=== PATIENT | male | born 1950 | race Hispanic/Latino ===

== ENCOUNTER → 2017-10-24 | Outpatient (CLI) | payer MEDICARE ==
[~2017-10-24] MED LIST: B/P MED; FLOMAX0.4 MG PO; IOPAMIDOL 370 MG/ML 200 ML INFUS..BTL INJ ONE; KETOROLAC TROME10 MG PO; SODIUM CHLORIDE 0.9% 50ML 50 ML ONE; TYLENOL # 31 EA PO; VASOTEC5 MG PO
[2017-10-24 09:14] LABS: BLOOD UREA NITROGEN 15 mg/dL (7-26); BUN/CREATININE RATIO 19 (6-25); CREATININE, SERUM 0.78 mg/dL (0.72-1.25); EST GLOMERULAR FILTRATION RATE > 60 ML/MIN (60-)
--- NOTE | 2017-10-24 10:51 | Diagnostic Imaging Report ---
PROCEDURE: CT ABDOMEN AND PELVIS WITH CONTRAST TECHNIQUE: The abdomen and pelvis were scanned utilizing a multidetector helical scanner from the diaphragm to the lesser trochanter after the IV administration of 100 cc of Isovue 370 and the oral administration of water. Coronal and sagittal multiplanar reformations were obtained. COMPARISON: CT abdomen and pelvis without contrast 01/09/2016. INDICATIONS: BENIGN LIPOMATOUS FINDINGS: LOWER THORAX: Unchanged large left-sided Bochdalek diaphragmatic hernia. HEPATOBILIARY: Subcentimeter hypoattenuating lesion in hepatic segment 6, too small to further characterize and unchanged relative to 01/09/2016, likely a small cyst. No additional focal hepatic lesion or intrahepatic biliary ductal dilatation. The gallbladder is collapsed but otherwise unremarkable. SPLEEN: No splenomegaly. PANCREAS: No focal masses or ductal dilatation. ADRENALS: No adrenal nodules. KIDNEYS/URETERS: Multiple low-attenuation lesion are noted throughout both kidneys, all of which have internal attenuation less than 20 Hounsfield units, and are stable to marginally increased in size compared to examination from 01/09/2016. The largest left-sided lesion measures 5.7 cm compared to 4.7 cm on the comparison examination. The largest right-sided lesion measures 5.7 cm in diameter compared to 5.3 cm on 01/09/2016. Duplicated right renal collecting system is again noted. Previously described calculus in the proximal ureter of the upper pole moiety has migrated retrograde into the collecting system as seen on series 2 image 25. Punctate nonobstructing left renal calculus best seen on series 301, image 70. No hydronephrosis. No renal, ureteral, or bladder calculi otherwise. PELVIC ORGANS/BLADDER: Coarse prostatic calcifications. Urinary bladder is incompletely distended but otherwise unremarkable. PERITONEUM / RETROPERITONEUM: No ascites or pneumoperitoneum. LYMPH NODES: No pelvic sidewall, retroperitoneal, or mesenteric lymphadenopathy. Portacaval lymph node measures 8-9 mm in short axis dimension, unchanged. VESSELS: There is atherosclerotic calcification of the abdominal aorta and major branch vessels without aneurysmal dilatation. Incidental note of a retroaortic left renal vein. GI TRACT: The large bowel shows no distention or wall thickening. Gas and fecal material are noted throughout. The appendix is normal. There is no small bowel dilatation to suggest obstruction. BONES AND SOFT TISSUES: Multilevel degenerative disc changes and facet arthropathy of the lower thoracic and lumbar spine. Bone island left femoral neck and left iliac wing, and right iliac wing. No focal soft tissue abnormalities. IMPRESSION: No acute intra-abdominal or pelvic CT abnormalities. Bilateral renal cysts, several of which are marginally increased in size relative to 01/09/2016. Partially duplicated right renal collecting system. Bilateral nonobstructing renal calculi. Prostatomegaly. Dictated by: Hai Mcdowell M.D. on 10/24/2017 at 10:53 Electronically approved by: Hai Mcdowell M.D. on 10/24/2017 at 10:53
== END ==
LOC: CT 08:19
PROVIDERS: ATTEND Internal Medicine
DX: D17.1 Benign lipomatous neoplasm of skin and subcutaneous tissue of trunk (principal)
CPT/HCPCS: 36415; 74177; 82565; 84520; Q9967

== ENCOUNTER → 2018-11-16 | Outpatient (CLI) | payer MEDICARE ==
[~2018-11-16] MED LIST changes: -IOPAMIDOL 370 MG/ML 200 ML INFUS..BTL INJ ONE; -SODIUM CHLORIDE 0.9% 50ML 50 ML ONE
--- NOTE | 2018-11-16 15:57 | Diagnostic Imaging Report ---
Chest, 2 views, 11/16/2018. History: Shortness of breath. Comparison: None available. Findings: The cardiomediastinal silhouette and pulmonary vasculature are within normal limits. The lungs are clear without evidence of consolidation or pleural effusion. Linear opacities are present at the left lung base. There are no acute osseous or soft tissue abnormalities. Impression: Left lower lobe atelectasis. Signed by: Connor Hackett on 11/16/2018 3:53 PM
== END ==
LOC: RAD 14:49
PROVIDERS: ATTEND Internal Medicine
DX: R06.02 Shortness of breath (principal); J41.0 Simple chronic bronchitis
CPT/HCPCS: 71046

== ENCOUNTER → 2018-11-28 | Outpatient (CLI) | payer MEDICARE ==
--- NOTE | 2018-11-29 07:28 | Diagnostic Imaging Report ---
EXAMINATION: CT scan of the chest without contrast. TECHNIQUE: Spiral CT images of the chest were performed from the lung apices to the level of the adrenal glands. No intravenous contrast was administered per interstitial lung disease protocol. Coronal and sagittal reformatted images were obtained. COMPARISON: Chest radiograph 11/16/2018 CLINICAL HISTORY:Left lung collapse DISCUSSION: ABSENCE OF INTRAVENOUS CONTRAST DECREASES SENSITIVITY FOR DETECTION OF FOCAL LESIONS AND VASCULAR PATHOLOGY. LINES/TUBES: None. LUNGS AND AIRWAYS: The lungs are well-inflated. Minimal bandlike atelectasis in the left lower lobe related to presence of a large fat-containing Bochdalek diaphragmatic hernia best seen on series 3 image 108. Minimal biapical pleural scar. No definite apical blebs or bullae. Juxtapleural nodular opacity in the right posterior costophrenic sulcus likely subsegmental atelectasis. The airways are normal, without endobronchial lesions. PLEURA: No pneumothorax or pleural effusions. HEART AND MEDIASTINUM: The thyroid gland is normal. No ectasia or aneurysmal dilatation of the thoracic aorta. Pulmonary outflow tract is of normal caliber. Atherosclerotic coronary artery calcifications. No pericardial effusion. LYMPH NODES: There is no mediastinal, hilar or axillary lymphadenopathy. ABDOMEN: Visualized portions of the liver, gallbladder, spleen, pancreas, and adrenal glands are unremarkable. Bilateral hypoattenuating renal lesions, right larger than left, have average internal attenuation less than 10 Hounsfield units, likely representing simple cysts. Partially visualized 7 mm right upper pole renal calculus. BONES AND SOFT TISSUES: No acute osseous abnormalities. Degenerative disc changes of the cervical and thoracic spine. IMPRESSION: Large fat-containing left Bochdalek hernia results in bandlike atelectasis in the left lower lobe, corresponding to the abnormality identified on comparison chest radiograph. Atherosclerotic vascular disease. Probable bilateral renal cysts. Right upper pole renal calculus. Signed by: Dr. Hai Mcdowell M.D. on 11/29/2018 7:25 AM
== END ==
LOC: CT 16:49
PROVIDERS: ATTEND Internal Medicine
DX: J98.11 Atelectasis (principal); N20.0 Calculus of kidney; M06.9 Rheumatoid arthritis, unspecified
CPT/HCPCS: 71250

== ENCOUNTER 2019-01-09 18:11 | Inpatient (IN) | payer MEDICARE ==
[~2019-01-09] VITALS: Ht 180.3 cm; Wt 99.8 kg
[2019-01-09] MEDS ORDERED: SODIUM CHLORIDE 0.9% 1000ML 1,000 ML IV STA (18:23)
[2019-01-09] MEDS ORDERED: MORPHINE SULFATE 2 MG/ML SYR 1ML IV STA (18:23)
--- OUTSIDE RECORDS SUMMARY | 2019-01-09 18:23 | XMS REPORT ---
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 Allergies, Adverse Reactions, Alerts This patient has no known allergies or adverse reactions. Medications This patient has no known medications. Results Test Description Test Time Test Comments Text Results Atomic Results Result Comments CT CHEST WO 2018-11-29 07:11:00 [place] [address] Patient Name: BAUTISTA RAMOS JR, V MR #: [id number] : 1950 Age/Sex: 68/M Req #: [id number] [facility] Physician: Ordered by: VINAY WILSON MD Report #: [id number] Location: CT Room/Bed: Procedure: [id number] CT/CT CHEST WO Exam Date: 11/28/18 Exam Time: 1720 REPORT STATUS: Signed EXAMINATION: CT scan of the chest without contrast. TECHNIQUE: Spiral CT images of the chest were performed from the lung apices to the level of the adrenal glands. No intravenous contrast was administered per interstitial lung disease protocol. Coronal and sagittal reformatted images were obtained. COMPARISON: Chest radiograph 11/16/2018 CLINICAL HISTORY:Left lung collapse DISCUSSION: ABSENCE OF INTRAVENOUS CONTRAST DECREASES SENSITIVITY FOR DETECTION OF FOCAL LESIONS AND VASCULAR PATHOLOGY. LINES/TUBES: None. LUNGS AND AIRWAYS: The lungs are well-inflated. Minimal bandlike atelectasis in the left lower lobe related to presence of a large fat-containing Bochdalek diaphragmatic hernia best seen on series 3 image 108. Minimal biapical pleural scar. No definite apical blebs or bullae. Juxtapleural nodular opacity in the right posterior costophrenic sulcus likely subsegmental atelectasis. The airways are normal, without endobronchial lesions. PLEURA: No pneumothorax or pleural effusions. HEART AND MEDIASTINUM: The thyroid gland is normal. No ectasia or aneurysmal dilatation of the thoracic aorta. Pulmonary outflow tract is of normal caliber. Atherosclerotic coronary artery calcifications. No pericardial effusion. LYMPH NODES: There is no mediastinal, hilar or axillary lymphadenopathy. ABDOMEN: Visualized portions of the liver, gallbladder, spleen, pancreas, and adrenal glands are unremarkable. Bilateral hypoattenuating renal lesions, right larger than left, have average internal attenuation less than 10 Hounsfield units, likely representing simple cysts. Partially visualized 7 mm right upper pole renal calculus. BONES AND SOFT TISSUES: No acute osseous abnormalities. Degenerative disc changes of the cervical and thoracic spine. IMPRESSION: Large fat-containing left Bochdalek hernia results in bandlike atelectasis in the left lower lobe, corresponding to the abnormality identified on comparison chest radiograph. Atherosclerotic vascular disease. Probable bilateral renal cysts. Right upper pole renal calculus. Signed by: Dr. Yair Farley M.D. on 11/29/2018 7:25 AM Dictated By: YAIR FARLEY MD 4 Transcribed By: VANESSA on 11/29/18724 COPY TO: VINAY WILSON MD CHEST 2 VIEWS 2018-11-16 15:53:00 [place] [address] Patient Name: BAUTISTA RAMOS JR, V MR #: [id number] : 1950 Age/Sex: 68/M Req #: [id number] Adm Physician: Ordered by: VINAY WILSON MD Report #: [id number] Location: [facility] Room/Bed: Procedure: [id number] DX/CHEST 2 VIEWS Exam Date: 11/16/18 Exam Time: 1500 REPORT STATUS: Signed Chest, 2 views, 11/16/2018. History: Shortness of breath. Comparison: None available. Findings: The cardiomediastinal silhouette and pulmonary vasculature are within normal limits. The lungs are clear without evidence of consolidation or pleural effusion. Linear opacities are present at the left lung base. There are no acute osseous or soft tissue abnormalities. Impression: Left lower lobe atelectasis. Signed b y: Connor Hackett on 11/16/2018 3:53 PM Dictated By: CONNOR HACKETT MD 52 Transcribed By: VANESSA on 11/16/181552 COPY TO: VINAY WILSON MD CT ABDOMEN/PELVIS W [place] [address] Patient Name: BAUTISTA RAMOS JR, V MR #: [id number] : 1950 Age/Sex: 67/M Acct #: [id number] Req #: [id number] Adm Physician: Ordered by: VINAY WILSON MD Report #: [id number] Location: CT Room/Bed: Procedure: [id number] CT/CT ABDOMEN/PELVIS W Exam Date: 10/24/17 Exam Time: 0900 REPORT STATUS: Signed PROCEDURE: CT ABDOMEN AND PELVIS WITH CONTRAST TECHNIQUE: The abdomen and pelvis were scanned utilizing a multidetector helical scanner from the diaphragm to the lesser trochanter after the IV administration of 100 cc of Isovue 370 and the oral administration of water. Coronal and sagittal multiplanar reformations were obtained. COMPARISON: CT abdomen and pelvis without contrast 01/09/2016. INDICATIONS: BENIGN LIPOMATOUS FINDINGS: LOWER THORAX: Unchanged large left-sided Bochdalek diaphragmatic hernia. HEPATOBILIARY: Subcentimeter hypoattenuating lesion in hepatic segment 6, too small to further characterize and unchanged relative to 01/09/2016, likely a small cyst. No additional focal hepatic lesion or intrahepatic biliary ductal dilatation. The gallbladder is collapsed but otherwise unremarkable. SPLEEN: No splenomegaly. PANCREAS: No focal masses or ductal dilatation. ADRENALS: No adrenal nodules. KIDNEYS/URETERS: Multiple low-attenuation lesion are noted throughout both kidneys, all of which have internal attenuation less than 20 Hounsfield units, and are stable to marginally increased in size compared to examination from 01/09/2016. The largest left-sided lesion measures 5.7 cm compared to 4.7 cm on the comparison examination. The largest right-sided lesion measures 5.7 cm in diameter compared to 5.3 cm on 01/09/2016. Duplicated right renal collecting system is again noted. Previously described calculus in the proximal ureter of the upper pole moiety has migrated retrograde into the collecting system as seen on series 2 image 25. Punctate nonobstructing left renal calculus best seen on series 301, image 70. No hydronephrosis. No renal, ureteral, or bladder calculi otherwise. PELVIC ORGANS/BLADDER: Coarse prostatic calcifications. Urinary bladder is incompletely distended but otherwise unremarkable. PERITONEUM / RETROPERITONEUM: No ascites or pneumoperitoneum. LYMPH NODES: No pelvic sidewall, retroperitoneal, or mesenteric lymphadenopathy. Portacaval lymph node measures 8-9 mm in short axis dimension, unchanged. VESSELS: There is atherosclerotic calcification of the abdominal aorta and major branch vessels without aneurysmal dilatation. Incidental note of a retroaortic left renal vein. GI TRACT: The large bowel shows no distention or wall thickening. Gas and fecal materia l are noted throughout. The appendix is normal. There is no small bowel dilatation to suggest obstruction. BONES AND SOFT TISSUES: Multilevel degenerative disc changes and facet arthropathy of the lower thoracic and lumbar spine. Bone island left femoral neck and left iliac wing, and right iliac wing. No focal soft tissue abnormalities. IMPRESSION: No acute intra-abdominal or pelvic CT abnormalities. Bilateral renal cysts, several of which are marginally increased in size relative to 01/09/2016. Partially duplicated right renal collecting system. Bilateral nonobstructing renal calculi. Prostatomegaly. Dictated by: Yair Farley M.D. on 10/24/2017 at 10:53 Electronically approved by: Yair Farley M.D. on 10/24/2017 at 10:53 Dictated By: YAIR FARLEY MD 1053 Transcribed By: VERO on 10/24/17 1053 COPY TO: VINAY WILSON MD
[2019-01-09 18:38] LABS: BASOPHILS % 0.2 % (0.0-1.0); EOSINOPHILS % 0.1 % (0.0-6.0); HEMATOCRIT 48.5 % (38.2-49.6); HEMOGLOBIN 16.8 g/dL (14.0-18.0); LYMPHOCYTES % 8.3 % (18.0-39.1); MEAN CORPUSCULAR HEMOGLOBIN 33.2 pg (28-32); MEAN CORPUSCULAR HGB CONC 34.6 g/dL (31-35); MEAN CORPUSCULAR VOLUME 95.8 fL (81-99); MONOCYTES # (AUTO) 0.9 (0.2-0.8); MONOCYTES % 6.9 % (4.4-11.3); NEUTROPHILS # (AUTO) 10.4 (2.1-6.9); NEUTROPHILS % 84.1 % (38.7-80.0); PLATELET COUNT 151 x10e3/uL (140-360); RED BLOOD COUNT 5.06 x10e6/uL (4.3-5.7); RED CELL DISTRIBUTION WIDTH 12.2 % (11.7-14.4)
[2019-01-09 18:40] LABS: BILIRUBIN,URINE NEGATIVE (NEGATIVE); CLARITY,URINE CLEAR (CLEAR); COLOR,URINE YELLOW (YELLOW); KETONES,URINE 1+ (NEGATIVE); LEUKOCYTE ESTERASE ,URINE NEGATIVE (NEGATIVE); NITRITE,URINE NEGATIVE (NEGATIVE); PROTEIN,URINE DIPSTICK TRACE (NEGATIVE); URINE UROBILINOGEN 0.2 mg/dL (0.2 - 1)
[2019-01-09] MEDS ORDERED: MORPHINE SULFATE INJ 4 MG/ML INJ 1ML IV ONE (18:45)
[2019-01-09 18:47] LABS: BACTERIA,URINE MODERATE /HPF; RBC,URINE 21-50 /HPF (0-5)
[2019-01-09 18:56] LABS: ALANINE AMINOTRANSFERASE 23 IU/L (0-55); ALBUMIN 4.2 g/dL (3.5-5.0); ALBUMIN/GLOBULIN RATIO 1.3 (0.8-2.0); ALKALINE PHOSPHATASE 97 IU/L (40-150); ANION GAP 13.5 mmol/L (8-16); BLOOD UREA NITROGEN 22 mg/dL (7-26); BUN/CREATININE RATIO 25 (6-25); CALCIUM 9.6 mg/dL (8.4-10.2); CARBON DIOXIDE 23 mmol/L (22-29); CHLORIDE 107 mmol/L (98-107); CREATININE, SERUM 0.88 mg/dL (0.72-1.25); EST GLOMERULAR FILTRATION RATE > 60 ML/MIN (60-); GLUCOSE 102 mg/dL (74-118); POTASSIUM 4.5 mmol/L (3.5-5.1); SODIUM 139 mmol/L (136-145)
--- NOTE | 2019-01-09 19:30 | Diagnostic Imaging Report ---
EXAM: CT Abdomen and Pelvis WITHOUT contrast INDICATION: Abdominal pain. Left flank pain. COMPARISON: 11/28/2018. 10/24/2017. 01/09/2016 TECHNIQUE: Abdomen and pelvis were scanned utilizing a multidetector helical scanner from the lung base to the pubic symphysis without administration of IV contrast. Absence of intravenous contrast decreases sensitivity for detection of focal lesions and vascular pathology. Coronal and sagittal reformations were obtained. Routine protocol was performed. IV CONTRAST: None ORAL CONTRAST: Water COMPLICATIONS: None RADIATION DOSE: Total DLP: 770 mGy*cm Estimated effective dose: (DLP x 0.015 x size factor) mSv CTDIvol has been reviewed. It is below the limits set by the Radiation Protocol Committee (RPC). Dose modulation, iterative reconstruction, and/or weight based adjustment of the mA/kV was utilized to reduce the radiation dose to as low as reasonably achievable. FINDINGS: LOWER THORAX: A 1.5 cm left posterior lateral diaphragmatic hernia. HEPATOBILIARY: No definite focal hepatic lesions. No biliary ductal dilatation. The gallbladder is unremarkable. SPLEEN: No splenomegaly. PANCREAS: No focal masses or ductal dilatation. ADRENALS: No discrete adrenal nodule. KIDNEYS/URETERS: Right: A 0.5 cm calculus in the right upper pole. No hydronephrosis. Multiple fluid densities, the largest at the posterior interpolar region Left: Multiple fluid densities, the largest 4.6 cm near the inferior pole. 0.7 cm partially obstructing stone in the distal left ureter. Moderate left hydronephrosis and hydroureter. Moderate left perinephric fat stranding. PELVIC ORGANS/BLADDER: The urinary bladder is partially decompressed. The prostate is mildly enlarged, 5.5 cm (mL) with coarse calcifications. PERITONEUM / RETROPERITONEUM: No free air or fluid. GI TRACT: On limited evaluation of the gastrointestinal tract, no dilation or wall thickening identified. The appendix is normal. LYMPH NODES: No pathologically enlarged lymph nodes. VESSELS: Diffuse scattered atherosclerotic vascular calcifications. BONES: No aggressive osseous lesion or acute fracture. SOFT TISSUES: Unremarkable. IMPRESSION: 1. 0.7 cm partially obstructing stone in the distal left ureter. Moderate left hydronephrosis and hydroureter. Moderate left perinephric fat stranding. 2. Nonobstructing right renal stone. 3. Bilateral renal cysts. 4. Enlarged prostate. Signed by: Dr. Angel David M.D. on 01/09/2019 7:26 PM
[2019-01-09] MEDS ORDERED: MORPHINE SULFATE 2 MG/ML SYR 1ML IV PRN (20:00)
[2019-01-09] MEDS ORDERED: ONDANSETRON HCL INJ 2MG/ML 2ML 2 MG/ML VIAL IV PRN (20:00)
--- NOTE | 2019-01-09 20:08 | NUR ---
clarified with dr rodriguez: patient to not have gastelum cath.
[2019-01-09] MEDS ORDERED: MORPHINE SULFATE INJ 4 MG/ML INJ 1ML IV PRN (20:15)
[2019-01-09 20:48] VITALS: BP 182/88
[2019-01-09 21:10] VITALS: BP 182/88
[2019-01-09] MEDS: CEFTRIAXONE SOD 1 GM/NS 50 ML 50 ML IV SCH (21:31)
[2019-01-09] MEDS: SODIUM CHLORIDE 0.9% 1000ML 1,000 ML IV SCH (21:31)
[2019-01-10] VITALS (8 sets, daily range): BP systolic 118–156; BP diastolic 65–89
[2019-01-10] MEDS: CEFTRIAXONE SOD 1 GM/NS 50 ML 50 ML IV SCH ×2 (08:42→20:47)
[2019-01-10] MEDS ORDERED: LEVOFLOXACIN 500MG/D5W 100ML 100 ML IV SCH (10:45)
[2019-01-10] MEDS: ACETAMINOPHEN/CODEINE 300MG - 30MG TAB PO SCH ×2 (11:12→18:00)
[2019-01-10] MEDS: ENALAPRIL MALEATE 5 MG TAB PO SCH (11:32)
[2019-01-10] MEDS: SODIUM CHLORIDE 0.9% 1000ML 1,000 ML IV SCH (11:32)
[2019-01-10] MEDS: TAMSULOSIN HCL 0.4 MG CAP PO SCH (11:32)
--- NOTE | 2019-01-10 15:23 | Diagnostic Imaging Report ---
Exam: KUB - 2 views Clinical History: Renal calculi Comparison: <None.> Findings: Nonobstructive bowel gas pattern. A 6 mm calcific density projecting over the bladder likely corresponds with the distal left ureteral calculus seen on the CT of 01/09/2019. No other abnormal calcification. The osseous structures appear unremarkable. Impression: Distal left ureteral calculus measuring 6 mm. No other radiographically apparent renal calculi. Signed by: Rhoda Bolton MD on 01/10/2019 3:19 PM
--- NOTE | 2019-01-10 17:37 | History and Physical ---
CHIEF COMPLAINT: He is a 68-year-old male patient of mine, presented with recurrent abdominal pain that was admitting chief complaint and left-sided flank pain. HISTORY OF PRESENT ILLNESS: Mr. Gerber is a 68-year-old male patient with previous history of hypertension, presented to the emergency room with a complaint of severe abdominal pain and left sided flank pain and patient also had a history of bloody urine. The patient was having the pain for 6 hours and with severe pain going to left flank area and it was radiating to the groin. REVIEW OF SYSTEMS: A detailed review of system examination was done. All 14 systems review examination done and mainly patient had abdominal pain, urinary symptoms and flank pain. PAST MEDICAL HISTORY: BPH, hyperlipidemia, hypertension. PAST SURGICAL HISTORY: Rotator cuff repair and right shoulder pain. MEDICATIONS: See from the list. ALLERGIES: NO KNOWN DRUG ALLERGIES. SOCIAL HISTORY: Denies smoking. Denies using alcohol. FAMILY HISTORY: Hypertension, hyperlipidemia. PHYSICAL EXAMINATION: GENERAL: He is an elderly male patient lying in the bed, not in any acute distress. VITAL SIGNS: Temperature 99, pulse rate 80, respiration rate 20, blood pressure 130/80. HEENT: Normocephalic, atraumatic. NECK: No JVD. No lymphadenopathy. LUNGS: Bilateral equal air entry. No rales, no rhonchi. HEART: S1, S2 regular. No murmur. No gallop. ABDOMEN: Soft. Bowel sounds present. NEUROLOGIC: No focal neurological deficit. ADMITTING IMPRESSION/DIAGNOSES: 1. Left renal ureteric stone. 2. Left hydronephrosis and hydroureter. 3. Urinary tract infection. 4. Hypertension. 5. Renal colic. PLAN: The patient is admitted with the above diagnosis. The patient will be given IV fluids, IV antibiotic and IV analgesics. Urology consultation has been done by Dr. Robbins. He is going to repeat KUB this afternoon if he thinks the stone is moving. If not, then the patient will need intervention. The patient is getting IV Rocephin. MD WILFRED Dean/MAUDEL /[id number]
--- NOTE | 2019-01-10 18:29 | NUR ---
Spoke to Dr. Robbins regarding KUB results- no new orders received.
--- NOTE | 2019-01-10 19:19 | NUR ---
PATIENT SITTING ON THE SIDE OF THE BED- IN STABLE CONDITION WITH NO S/S OF RESPIRATORY DISTRESS. NO PAIN VOICED. IV FLUIDS INFUSING. FAMILY MEMBERS PRESENT IN ROOM. CALL LIGHT IS WITHIN REACH, PATIENT INSTRUCTED TO CALL FOR ASSISTANCE NEEDED. BEDSIDE REPORT GIVEN TO ONCOMING NURSE.
[2019-01-11] VITALS (9 sets, daily range): BP systolic 148–187; BP diastolic 41–90
[2019-01-11] MEDS: ACETAMINOPHEN/CODEINE 300MG - 30MG TAB PO SCH ×4 (05:56→17:08)
[2019-01-11 06:07] LABS: BASOPHILS % 0.3 % (0.0-1.0); EOSINOPHILS # (AUTO) 0.2 (0.0-0.4); EOSINOPHILS % 2.8 % (0.0-6.0); HEMATOCRIT 41.7 % (38.2-49.6); LYMPHOCYTES % 34.5 % (18.0-39.1); MEAN CORPUSCULAR HEMOGLOBIN 32.9 pg (28-32); MEAN CORPUSCULAR HGB CONC 33.6 g/dL (31-35); MEAN CORPUSCULAR VOLUME 97.9 fL (81-99); MONOCYTES # (AUTO) 0.5 (0.2-0.8); MONOCYTES % 8.8 % (4.4-11.3); NEUTROPHILS # (AUTO) 3.1 (2.1-6.9); NEUTROPHILS % 53.4 % (38.7-80.0); PLATELET COUNT 133 x10e3/uL (140-360); RED BLOOD COUNT 4.26 x10e6/uL (4.3-5.7); RED CELL DISTRIBUTION WIDTH 12.4 % (11.7-14.4)
[2019-01-11 06:28] LABS: ALANINE AMINOTRANSFERASE 16 IU/L (0-55); ALBUMIN 3.3 g/dL (3.5-5.0); ALBUMIN/GLOBULIN RATIO 1.2 (0.8-2.0); ALKALINE PHOSPHATASE 74 IU/L (40-150); ANION GAP 10.6 mmol/L (8-16); BLOOD UREA NITROGEN 14 mg/dL (7-26); BUN/CREATININE RATIO 19 (6-25); CALCIUM 8.6 mg/dL (8.4-10.2); CARBON DIOXIDE 26 mmol/L (22-29); CHLORIDE 112 mmol/L (98-107); CREATININE, SERUM 0.74 mg/dL (0.72-1.25); EST GLOMERULAR FILTRATION RATE > 60 ML/MIN (60-); GLUCOSE 96 mg/dL (74-118); POTASSIUM 4.6 mmol/L (3.5-5.1); SODIUM 144 mmol/L (136-145)
[2019-01-11] MEDS: CEFTRIAXONE SOD 1 GM/NS 50 ML 50 ML IV SCH ×2 (08:16→20:00)
[2019-01-11] MEDS: TAMSULOSIN HCL 0.4 MG CAP PO SCH (08:16)
[2019-01-11] MEDS: ENALAPRIL MALEATE 5 MG TAB PO SCH (08:17)
--- NOTE | 2019-01-11 09:35 | NUR ---
PATIENT IN STABLE CONDITION WITH NO S/S OF RESPIRATORY DISTRESS. PATIENT DENIES PAIN. IV FLUIDS INFUSING. CALL LIGHT IS WITHIN REACH, PATIENT INSTRUCTED TO CALL FOR ASSISTANCE NEEDED.
--- NOTE | 2019-01-11 11:21 | Diagnostic Imaging Report ---
Exam: KUB - 2 views Clinical History: Renal calculi Comparison: CT abdomen pelvis of 01/09/2019, KUB of 01/10/2019 Findings: Nonobstructive bowel gas pattern. 9 mm calcific density projecting over the right kidney corresponds with upper pole calculus seen on CT of 01/09/2019. A 7 mm calcific density projecting over the bladder likely corresponds with the distal left ureteral calculus seen on the CT of 01/09/2019. No other abnormal calcification. The osseous structures appear unremarkable. Impression: Right upper pole 9 mm renal calculus. 7 mm calculus likely at the left distal ureter. Signed by: hRoda Bolton MD on 01/11/2019 11:17 AM
[2019-01-11] MEDS: SODIUM CHLORIDE 0.9% 1000ML 1,000 ML IV SCH ×2 (12:00→19:03)
--- NOTE | 2019-01-11 14:08 | Consultation ---
DATE OF CONSULTATION: 01/10/2019 Urologic Consultation Consultation was called by Dr. Caruso in the emergency room. CHIEF COMPLAINT/REASON FOR CONSULTATION: Kidney stones. HISTORY OF PRESENT ILLNESS: Mr. Gerber is a 68-year-old male with a history of acute onset of sharp left-sided flank pain, 10/10 that radiated to the anterior abdomen. Denied dysuria, reported gross hematuria. PAST MEDICAL HISTORY: Notable for BPH, hypercholesterolemia. MEDICATIONS: Please see MAR. ALLERGIES: NKDA. SOCIAL HISTORY: Nonsmoker. No drinking. FAMILY HISTORY: Denied urologic stones or malignancies. REVIEW OF SYSTEMS: Noncontributory other than problems mentioned above for 12 organ systems. PHYSICAL EXAMINATION: GENERAL: Elderly male, in no acute distress. VITAL SIGNS: Temperature 97.4, pulse 88, respirations 19, blood pressure 148/76. HEENT: Sclerae anicteric. NECK: Supple. BACK: Without costovertebral angle tenderness bilaterally. ABDOMEN: Soft. It is nontender. It is nondistended. There is no palpable mass. No palpable hernias. No palpable lymphadenopathy. : Normal male external genitalia. EXTREMITIES: Without edema. NEUROLOGIC: Moves all 4 extremities. PSYCHIATRIC: Alert and appropriate. SKIN: Intact, normal color. PERTINENT LABORATORY DATA: CT scan revealing a 7 mm left distal ureteral calculus with bilateral kidney stones, bilateral renal cysts. Hemoglobin 6, hematocrit 18, platelet count 51,000, white cell count of 12,000. Sodium 139, potassium 4.5, chloride 107, bicarb 23, BUN 22, creatinine 0.98, glucose 102. IMPRESSION: 1. Left ureteral calculus. 2. Bilateral renal calculi. 3. Bilateral renal cysts. 4. Benign prostatic hypertrophy. 5. Gross hematuria. 6. Left hydronephrosis. PLAN: We would employ a brief trial of passage. Should this fail, the patient will likely need stenting versus ureteroscopy. Defer management of the kidney stones surveillance of the cyst. Thank you for allowing me to participate in the care of your patient. I will be happy to follow along with you. MD TONI Santos/MODL /[id number]
--- NOTE | 2019-01-11 19:07 | NUR ---
PATIENT IN STABLE CONDITION WITH NO S/S OF RESPIRATORY DISTRESS. NO PAIN VOICED. IV FLUIDS INFUSING. PRESENT IN ROOM. CALL LIGHT IS WITHIN REACH, PATIENT INSTRUCTED TO CALL FOR ASSISTANCE NEEDED. BEDSIDE REPORT GIVEN TO ONCOMING NURSE.
--- NOTE | 2019-01-11 20:18 | NUR ---
RECEIVED PT SITTING ON THE SIDE OF THE BED NO ACUTE DISTRESS NOTED .CALL .BLANCHABLE REDNESS TO THE BILATERAL BUTTOCKS .WOUND CARE NOTED BY THE DAY SHIFT .CALL LIGHT WITH IN REACH .CONTINUE TO MONITOR
[2019-01-12] VITALS: BP 153/73
[2019-01-12 04:00] VITALS: BP 184/96
[2019-01-12] MEDS: ACETAMINOPHEN/CODEINE 300MG - 30MG TAB PO SCH ×3 (06:00→09:16)
[2019-01-12 06:23] LABS: BASOPHILS % 0.3 % (0.0-1.0); EOSINOPHILS # (AUTO) 0.1 (0.0-0.4); EOSINOPHILS % 1.3 % (0.0-6.0); HEMATOCRIT 45.3 % (38.2-49.6); HEMOGLOBIN 15.5 g/dL (14.0-18.0); LYMPHOCYTES # (AUTO) 2.3 (1.0-3.2); LYMPHOCYTES % 37.6 % (18.0-39.1); MEAN CORPUSCULAR HEMOGLOBIN 32.8 pg (28-32); MEAN CORPUSCULAR HGB CONC 34.2 g/dL (31-35); MONOCYTES # (AUTO) 0.4 (0.2-0.8); MONOCYTES % 6.3 % (4.4-11.3); NEUTROPHILS # (AUTO) 3.4 (2.1-6.9); NEUTROPHILS % 54.3 % (38.7-80.0); PLATELET COUNT 153 x10e3/uL (140-360); RED BLOOD COUNT 4.72 x10e6/uL (4.3-5.7); RED CELL DISTRIBUTION WIDTH 12.2 % (11.7-14.4)
[2019-01-12] MEDS ORDERED: IOPAMIDOL 610MG/1ML 300 MG/ML VIAL IV ONE (06:25)
--- NOTE | 2019-01-12 06:36 | NUR ---
PT IS NPO AFTER MIDNIGHT FOR CYSTOSCOPY .NO STONE FOUND IN THE URINE .FAMILY AT THE BEDSIDE .CALL LIGHT WITH IN REACH .CONTINUE TO MONITOR
[2019-01-12 06:42] LABS: ALANINE AMINOTRANSFERASE 22 IU/L (0-55); ALBUMIN 3.9 g/dL (3.5-5.0); ALBUMIN/GLOBULIN RATIO 1.2 (0.8-2.0); ALKALINE PHOSPHATASE 90 IU/L (40-150); ANION GAP 14.2 mmol/L (8-16); BLOOD UREA NITROGEN 14 mg/dL (7-26); BUN/CREATININE RATIO 19 (6-25); CALCIUM 9.3 mg/dL (8.4-10.2); CARBON DIOXIDE 23 mmol/L (22-29); CHLORIDE 111 mmol/L (98-107); CREATININE, SERUM 0.75 mg/dL (0.72-1.25); EST GLOMERULAR FILTRATION RATE > 60 ML/MIN (60-); GLUCOSE 99 mg/dL (74-118); POTASSIUM 4.2 mmol/L (3.5-5.1); SODIUM 144 mmol/L (136-145)
[2019-01-12] MEDS ORDERED: HYDRALAZINE HCL 20 MG/ML VIAL IV PRN (06:45)
--- NOTE | 2019-01-12 07:00 | NUR ---
RECEIVED REPORT FROM NURSE, PT LEFT THE UNIT AT 0658 FOR CYSTOSCOPY/LITHOTRIPSY/STENT PLACEMENTS. PT WAS ALERT WITH NO S/S OF DISTRESS. PT TRANSPORTED VIA STRETCHER.
[2019-01-12] MEDS: SODIUM CHLORIDE 0.9% 1000ML 1,000 ML IV SCH (07:16)
--- NOTE | 2019-01-12 07:21 | NUR ---
BP WAS HIGH AND NOTIFIED DR WILSON .DR WILSON GIVEN THE ORDER TO GIVE HYDRALAZINE 2.5 MG .GIVEN HYDRALAZINE BEFORE E GOING TO THE SURGERY EPOERT GIVEN TO THE ONCOMING NURSE
--- NOTE | 2019-01-12 08:30 | NUR ---
RECEIVED REPORT FROM CHRISTEN IN PACU, PT IS S/P LEFT CYSTO/RETROGRADE/LASER/STENT PLACEMENT. PT IS AWAKE AND ORIENTED, NO S/S OF DISTRESS. LAST VITALS: 132/77 HR 69 RR 16 O2 SAT 98% ON ROOM AIR. NO N/V AND NO COMPLAINTS OF PAIN
[2019-01-12 08:45] VITALS: BP 168/83
[2019-01-12] MEDS: CEFTRIAXONE SOD 1 GM/NS 50 ML 50 ML IV SCH (09:15)
[2019-01-12] MEDS: TAMSULOSIN HCL 0.4 MG CAP PO SCH (09:15)
[2019-01-12] MEDS: ENALAPRIL MALEATE 5 MG TAB PO SCH (09:16)
[2019-01-12 09:30] VITALS: BP 168/83
[2019-01-12 11:44] VITALS: BP 153/80
[2019-01-12] MEDS ORDERED: KETAMINE HCL INJ 50 MG/ML 10 ML VIAL ONE (19:23)
[2019-01-12] MEDS ORDERED: MIDAZOLAM HCL 2 MG/2 ML VIAL ONE (19:23)
[2019-01-12] MEDS ORDERED: FENTANYL CITRATE/PF 100MCG/2 ML INJ ONE (19:23)
[2019-01-12] MEDS ORDERED: PROPOFOL IV EMULSION 10 MG/ML 20 ML VIAL ONE (19:41)
[2019-01-12] MEDS ORDERED: LIDOCAINE HCL 2% LOCAL INJ 5 ML SDV VIAL INJ ONE (19:41)
[2019-01-12] MEDS ORDERED: DEXAMETHASONE SOD PHOS INJ 4 MG/ML VIAL ONE (19:41)
[2019-01-12] MEDS ORDERED: ONDANSETRON HCL INJ 2MG/ML 2ML 2 MG/ML VIAL ONE (19:41)
[2019-01-12] MEDS ORDERED: CEFTRIAXONE SOD 1 GM VIAL ONE (19:41)
[2019-01-12] MEDS ORDERED: DESFLURANE 240 ML BTL INH ONE (19:41)
--- NOTE | 2019-01-13 21:03 | Operative Report ---
DATE OF PROCEDURE: 01/12/2019 SURGEON: Lucas Robbins MD PREOPERATIVE DIAGNOSES: 1. Hematuria. 2. Left ureteral calculus. 3. Left hydronephrosis. POSTOPERATIVE DIAGNOSES: 1. Hematuria. 2. Left ureteral calculus. 3. Left hydronephrosis. PROCEDURES: 1. Cystourethroscopy with right ureteral catheterization and right retrograde pyelogram (separate procedure for the diagnosis of microscopic hematuria). 2. Left-sided ureteroscopy with laser lithotripsy (entirely separate procedure for diagnosis of left ureteral calculus). 3. Cystourethroscopy with insertion of left indwelling ureteral stent (entirely separate procedure for diagnosis of left hydronephrosis). 4. Supervision of fluoroscopy for ureteroscopy and stent insertion portions. 5. Interpretation of retrograde pyelography. ANESTHESIA: General. ESTIMATED BLOOD LOSS: Minimal. COMPLICATIONS: None. INDICATIONS FOR PROCEDURE: Mr. Gerber is a 68-year-old male with a history of a large ureteral calculus, who was failed a trial of passage. He and I had a long discussion regarding alternatives, risks, and benefits including doing nothing, ureteroscopy, stent placement, percutaneous surgery, shock lithotripsy, and open surgery. He voiced understanding of the options, alternatives, risks, and benefits and elected to proceed. PROCEDURE IN DETAIL: After informed consent was obtained, the patient was taken to the operative suite, placed supine on the operating table, underwent general anesthesia by Anesthesia Service. He was placed in the dorsal lithotomy position and sterilely prepped and draped in standard fashion for cystoscopy. A 21-Tajik cystoscope was inserted per urethra. Normal urethra was noted. Panendoscopy of bladder revealed no tumors, no stones. The left ureteral orifice was catheterized. Retrograde pyelogram was performed revealing distal 7 mm calculus, proximal hydronephrosis. A guidewire was inserted. Attention was turned to the right side, where retrograde pyelogram revealed a stone in the upper mid pole moiety. The ureteroscope was advanced to the left ureter after dilation. Utilizing a 365 micron laser fiber, the stone was obliterated. The ureteral stent was then deployed with coil in the renal pelvis and the coil in the bladder. The bladder was then drained. The patient was awakened from anesthesia and transferred to the recovery room in excellent condition. Supervision of fluoroscopy and interpretation of retrograde pyelography: I was present for the entire procedure and supervised fluoroscopy. There was no radiologist present. Attention was turned to the left ureteral orifice, which was catheterized. Retrograde pyelogram was performed. On the left side, there was a 7 mm distal ureteral calculus and proximal hydronephrosis and on the right side, there was duplicated collecting system with a stone seen in the upper pole moiety. Postoperative views on the left side revealed stent in adequate position. MD TONI Santos/MODL /[id number]
[2019-01-18] MEDS ORDERED: MELOXICAM7.5 MG PO (09:18)
== END 2019-01-12 15:25 | disposition home or self-care (01) | DRG 661 ==
LOC: ER 18:11 → ERHOLD 20:13 → MED/SURG3 20:48
PROVIDERS: ADMIT Internal Medicine; ATTEND Internal Medicine
PROC: 0T768ZZ Dilation of Right Ureter, Via Natural or Artificial Opening Endoscopic (ICD-10-PCS; 2019-01-12)
PROC: BT141ZZ Fluoroscopy of Kidneys, Ureters and Bladder using Low Osmolar Contrast (ICD-10-PCS; 2019-01-12)
PROC: 0T778DZ Dilation of Left Ureter with Intraluminal Device, Via Natural or Artificial Opening Endoscopic (ICD-10-PCS; principal; 2019-01-12 07:00)
PROC: 0TC78ZZ Extirpation of Matter from Left Ureter, Via Natural or Artificial Opening Endoscopic (ICD-10-PCS; 2019-01-12 07:00)
DX: N13.6 Pyonephrosis (principal); N39.0 Urinary tract infection, site not specified; R31.9 Hematuria, unspecified; N28.1 Cyst of kidney, acquired; R31.0 Gross hematuria; N40.0 Benign prostatic hyperplasia without lower urinary tract symptoms; I10 Essential (primary) hypertension
CPT/HCPCS: 36415; 74018; 74176; 74420; 80053; 81001; 82948; 85025; 87086; 99284; C1758; C1788; C2617; J0360; J0696; J1100; J2001; J2250; J2270; J2405; J3010; J7030

== ENCOUNTER → 2019-01-19 | Day surgery (SDC) | payer MEDICARE ==
--- NOTE | 2019-01-18 11:01 | Diagnostic Imaging Report ---
Abdomen, 1 view. History: Renal stone. Findings: 9 mm calcific density projected over the upper pole of the right kidney is unchanged. A new left internal ureteral double-J stent is present. The calcification previously seen in the left pelvis is not clearly identified on today's study. Air is scattered throughout nondilated small and large bowel. There are no masses. The osseous structures are intact. IMPRESSION: Interval placement of left internal ureteral double-J stent. Signed by: Connor Hackett on 01/18/2019 10:58 AM
[~2019-01-19] MED LIST changes: +CEFTRIAXONE SOD 1 GM/NS 50 ML 50 ML IV ONE; +DEXAMETHASONE SOD PHOS INJ 4 MG/ML VIAL ONE; +EPHEDRINE SULFATE INJ 50 MG/10 ML SYR ONE; +FENTANYL CITRATE/PF 100MCG/2 ML INJ ONE; +IOPAMIDOL 610MG/1ML 300 MG/ML VIAL IV ONE; +LIDOCAINE HCL 2% LOCAL INJ 5 ML SDV VIAL INJ ONE; +MELOXICAM7.5 MG PO; +MIDAZOLAM HCL 2 MG/2 ML VIAL ONE; +ONDANSETRON HCL INJ 2MG/ML 2ML 2 MG/ML VIAL ONE; +PROPOFOL IV EMULSION 10 MG/ML 20 ML VIAL ONE; +SEVOFLURANE INHAL SOLN 250 ML PEN BTL ONE
[2019-01-19 09:40] VITALS: BP 148/85
--- NOTE | 2019-01-22 00:52 | Operative Report ---
DATE OF PROCEDURE: 01/19/2019 SURGEON: Lucas Robbins MD PREOPERATIVE DIAGNOSIS: Left kidney stone. POSTOPERATIVE DIAGNOSIS: Left kidney stone. PROCEDURES: 1. Staged shock wave lithotripsy, left side. 2. Supervision of fluoroscopy. ANESTHESIA: General. ESTIMATED BLOOD LOSS: Minimal. COMPLICATIONS: None. INDICATIONS FOR PROCEDURE: Mr. Gerber is a 68-year-old male with a previous history of left ureteral calculus fragment bone of the kidney as well as small kidney stone. He also has a large right kidney stone. The patient now presents for a staged left-sided shock wave lithotripsy, possible stent removal. He voiced understanding of the options, alternatives, the risks, and benefits and he elected to proceed. PROCEDURE IN DETAIL: After informed consent was obtained, a time-out was taken and then operative sites were identified. The patient was taken to the operative suite, placed supine on the operating table. He underwent general anesthesia by the Anesthesia Service. A time-out was taken. The side was confirmed with a radha. Attention was turned to the left kidney. Stone was localized in the X, Y and Z planes. Treatment report, the patient tolerated the procedure well and was transported to recovery room in excellent condition. Supervision of fluoroscopy: I was present for the entire procedure and supervised fluoroscopy. There was no radiologist present at the time of this procedure. The patient will return in approximately 2 weeks for left stent removal and right shock wave lithotripsy. Lucas Robbins MD ES/MODL /[id number]
== END | disposition home or self-care (01) ==
LOC: OR 05:52
PROVIDERS: ATTEND Urology
DX: N13.2 Hydronephrosis with renal and ureteral calculous obstruction (principal); Z01.810 Encounter for preprocedural cardiovascular examination
CPT/HCPCS: 50590; 74018; 93005; J0696; J1100; J2001; J2250; J2405; J2704; J3010

== ENCOUNTER → 2019-01-24 | Day surgery (SDC) | payer MEDICARE ==
[~2019-01-24] MED LIST changes: -CEFTRIAXONE SOD 1 GM/NS 50 ML 50 ML IV ONE; +GENTAMICIN 80MG/NS 100 ML 100 ML IV ONE; +PHENYLEPHRINE HCL 1% 10 MG/ML VIAL ONE
[2019-01-24 14:42] VITALS: BP 138/94
--- NOTE | 2019-01-25 15:30 | Operative Report ---
DATE OF PROCEDURE: 01/24/2019 SURGEON: Lucas Robbins MD PREOPERATIVE DIAGNOSES: 1. Indwelling left ureteral stent. 2. Right renal calculi. POSTOPERATIVE DIAGNOSES: 1. Indwelling left ureteral stent. 2. Right renal calculi. PROCEDURES: 1. Staged right-sided shock wave lithotripsy. 2. Cystourethroscopy with staged removal of left indwelling stent. 3. Supervision of fluoroscopy. ANESTHESIA: General. ESTIMATED BLOOD LOSS: Minimal. COMPLICATIONS: None. INDICATIONS: Mr. Gerber is a very pleasant 68-year-old male, now presents for hopefully his final procedure to rid him of his bilateral obstructing stones. He and I had a long discussion about alternatives, risks, and benefits of doing nothing, shock wave lithotripsy, ureteroscopy, percutaneous surgery, and open surgery. He voiced understanding of the options, alternatives, risks, and benefits and he elected to proceed with staged lithotripsy and stent removal. PROCEDURE IN DETAIL: After informed consent was obtained, the patient was taken to the operative suite, placed supine on the operating table. He underwent general anesthesia by Anesthesia Service. He was placed in the dorsal lithotomy position, sterilely prepped and draped in standard fashion for cystoscopy. A 21-Estonian cystoscope was inserted per urethra. Normal urethra was noted. Panendoscopy of the bladder revealed no tumors and no stones. The stent was seen extruding from left ureteral orifice, it was grasped and removed intact. The patient was then placed back in the supine position. The stone was localized in the right kidney in the X, Y, and Z planes. Treatment was performed per the treatment report. The patient tolerated the procedure well and transported to the recovery room in excellent condition. Supervision of fluoroscopy: I was present for the entire procedure and supervised fluoroscopy for the stent removal portion. There was no radiologist present. Lucas Robbins MD ES/MODL /[id number] cc: Grant Watts MD
== END | disposition home or self-care (01) ==
LOC: OR 11:47
PROVIDERS: ATTEND Urology
DX: Z46.6 Encounter for fitting and adjustment of urinary device (principal); N20.0 Calculus of kidney; I10 Essential (primary) hypertension; N40.0 Benign prostatic hyperplasia without lower urinary tract symptoms; R06.02 Shortness of breath; Z87.891 Personal history of nicotine dependence
CPT/HCPCS: 50590; 52310; C1758; J1100; J1580; J2001; J2250; J2370; J2405; J2704; J3010; Q9967

== ENCOUNTER → 2020-02-13 | Outpatient (CLI) | payer MEDICARE ==
[~2020-02-13] MED LIST changes: -DEXAMETHASONE SOD PHOS INJ 4 MG/ML VIAL ONE; -EPHEDRINE SULFATE INJ 50 MG/10 ML SYR ONE; -FENTANYL CITRATE/PF 100MCG/2 ML INJ ONE; -GENTAMICIN 80MG/NS 100 ML 100 ML IV ONE; -IOPAMIDOL 610MG/1ML 300 MG/ML VIAL IV ONE; -LIDOCAINE HCL 2% LOCAL INJ 5 ML SDV VIAL INJ ONE; -MIDAZOLAM HCL 2 MG/2 ML VIAL ONE; -ONDANSETRON HCL INJ 2MG/ML 2ML 2 MG/ML VIAL ONE; -PHENYLEPHRINE HCL 1% 10 MG/ML VIAL ONE; -PROPOFOL IV EMULSION 10 MG/ML 20 ML VIAL ONE; -SEVOFLURANE INHAL SOLN 250 ML PEN BTL ONE
--- NOTE | 2020-02-13 09:27 | Diagnostic Imaging Report ---
Radiographs of the lumbar spine. Radiographs of the sacrum. HISTORY: Back pain. Lumbosacral pain COMPARISON: None available. FINDINGS: Bones: No acute displaced fracture. Osseous alignment is within normal limits. Joints: Scattered degenerative change. No osseous erosion. Transitional anatomy at the lumbosacral junction. No pars interarticularis defects. Soft tissues: The soft tissues appear unremarkable. IMPRESSION: Scattered degenerative change about the lumbar spine and sacrum. No osseous erosion. Transitional anatomy at the lumbosacral junction. No pars interarticularis defects. Signed by: Dr. Angel David M.D. on 02/13/2020 9:24 AM
== END ==
LOC: RAD 08:18
PROVIDERS: ATTEND Internal Medicine
DX: M43.07 Spondylolysis, lumbosacral region (principal)
CPT/HCPCS: 72110; 72220

== ENCOUNTER → 2021-06-09 | Outpatient (CLI) | payer MEDICARE | LOC: RAD 08:01 | PROVIDERS: ATTEND Internal Medicine | DX: R06.02 Shortness of breath (principal) | CPT/HCPCS: 71046 ==

== ENCOUNTER → 2022-08-19 | Outpatient (CLI) | payer MEDICARE | LOC: RAD 09:22 | PROVIDERS: ATTEND Internal Medicine | DX: M47.812 Spondylosis without myelopathy or radiculopathy, cervical region (principal) | CPT/HCPCS: 72050 ==

== ENCOUNTER → 2024-02-03 | Outpatient (REF) | payer MEDICARE | LOC: RAD 13:51 | PROVIDERS: ATTEND Internal Medicine | DX: M26.609 Unspecified temporomandibular joint disorder, unspecified side (principal) | CPT/HCPCS: 70110 ==